=== PATIENT | female | born 1995 | race Asian ===

== ENCOUNTER 2025-01-10 17:38 | Emergency (ER) | payer OTHER, SELFPAY ==
[2025-01-10 17:49] VITALS: BP 117/74; PULSE 74; RESP 18; TEMP 36.4; O2SAT 100
--- NOTE | 2025-01-10 18:06 | ED_ITS ---
HPI - Abdominal Pain General Chief Complaint: Abdominal Pain Stated Complaint: cramps, stomach pain Time Seen by Provider: 01/10/25 17:39 patient presents to [facility] with complaints of sudden onset abdominal pain that began about 3 hours prior to arrival at [facility]. Patient noted she has attempted ibuprofen and had a normal bowel movement without any relief of abdominal pain. Patient does report she has previously had her appendix taken out and this pain feels similar to that. Denies fever, chills, body aches, nausea, vomiting, diarrhea. Denies any concern for recently had regular menstrual cycle that ended 2 days ago. Related Data Home Medications ?Medication ?Instructions ?Recorded ?Confirmed ?Last Taken ?Type No Home Medications 01/10/25 01/10/25 Unknown History Allergies Allergy/AdvReac Type Severity Reaction Status Date / Time Penicillins Allergy Mild Itching Verified 01/10/25 17:50 Review of Systems Constitutional: Constitutional: Reports as per HPI, Denies chills, Denies fatigue, Denies fever(s) and Denies weakness Eyes: Eyes: Reports no additional eye complaints ENT: Reports system reviewed and no additional complaints, except as documented Cardiovascular: Cardiovascular: Reports no additional cardiovascular complaints Respiratory: Respiratory: Reports no additional respiratory complaints Gastrointestinal: Gastrointestinal: Reports as per HPI, Reports abdominal pain, Denies bloating, Denies constipation, Denies heartburn, Denies diarrhea, Denies nausea and Denies vomiting Genitourinary: Genitourinary: Reports as per HPI, Denies abnormal vaginal bleeding, Denies hematuria, Denies nocturia, Denies genital lesions, Denies dysuria, Denies pelvic pain, Denies flank pain, Denies urinary incontinence and Denies vaginal discharge Musculoskeletal: Musculoskeletal: Reports no additional musculoskeletal complaints Neurologic: Reports as per HPI, Denies vertigo, Denies dizziness, Denies headache(s), Denies focal weakness and Denies weakness Psychiatric: Psychiatric: Reports no additional psychiatric complaints Endocrine: Endocrine: Reports no additional endocrine complaints Hematologic/Lymphatic: Hematologic/Lymphatic: Reports no additional hematologic/lymphatic complaints Allergic/Immunologic: Allergic/Immunologic: Reports no additional allergic/immunologic complaints Exam Const: General: healthy appearing and no acute distress Nutritional Appearance: well nourished Orientation/consciousness: patient oriented x3 Limitations: no limitations Resp: Effort & Inspection: normal respiratory effort Auscultation: clear to auscultation bilaterally Cardio: Rate: regular rate Rhythm: regular rhythm GI: Inspection: non-distended GI Palp: Yes Soft to palpation, Yes Tenderness to palpation present (GI) (umbilicus, LUQ, LLQ), Yes Guarding due to palpation present (GI) (umbilicus ), No Rigid due to palpation, No Hernia present and No Rebound tenderness present Auscultation: normal bowel sounds : General: Yes bladder normal to palpation and Yes no CVA tenderness Back/Spine/Pelvis: Back: no CVA tenderness Skin: General skin exam: normal color Rashes: no rashes Wounds: no wounds Neuro: General: patient oriented x3 Speech: normal speech Gait exam (Neuro): Normal gait present Extrem: General: normal to inspection, no clubbing, cyanosis or edema and no p edal edema Psych: Mental Status: mental status grossly normal Affect: normal affect Attitude: cooperative Course Course Level of Care: Express Care Visit Vital Signs Vital signs: Vital Signs Temperature 97.5 F L 01/10/25 17:49 Pulse Rate 74 01/10/25 17:49 Respiratory Rate 18 01/10/25 17:49 Blood Pressure 117/74 01/10/25 17:49 Pulse Oximetry 100 01/10/25 17:49 Oxygen Delivery Room Air 01/10/25 17:49 Temperature 97.5 F L 01/10/25 17:49 Pulse Rate 74 01/10/25 17:49 Respiratory Rate 18 01/10/25 17:49 Blood Pressure 117/74 01/10/25 17:49 Pulse Oximetry 100 01/10/25 17:49 Oxygen Delivery Room Air 01/10/25 17:49 MDM - Abdominal Pain MDM Narrative Medical decision making narrative: assessment of patient has significant tenderness over left side of abdomen and periumbilical area. No obvious cause for abdominal pain recommended patient go to the emergency room for potential ultrasound versus CT scan and lab work. Patient would like to go to [facility] in [place]. Report called to [facility] for Dr. Ayon. patient going by private vehicle. Patient informed of risks Differential Diagnosis Differential diagnosis: Likely calculus of kidney, constipation, diverticulitis, endometriosis, gastroenteritis, pancreatitis and small bowel obstruction Medical Records Attestation: I reviewed the patient's medical records. Discharge Plan Discharge Clinical Impression: Abdominal pain Qualifiers: Abdominal location: generalized Qualified Code(s): R10.84 - Generalized abdominal pain Patient Disposition: Acute Care Hospital Condition: Stable Patient Language: French Prescriptions: No Action No Home Medications Follow-up/Referrals: PHYSICIAN,LINING BRUSHER [Primary Care Provider] - Time of Disposition: 18:08
== END 2025-01-10 18:06 | disposition short-term general hospital (02) ==
PROVIDERS: Emergency Provider Nurse Practitioner Family; Referring Provider Family Medicine
DX: R10.84 Generalized abdominal pain (principal)
CPT/HCPCS: 99202; 99203; G0463